=== PATIENT | female | born 1990 | race Two or more races ===

== ENCOUNTER 2020-02-12 02:12 | Inpatient (IN) | payer OTHER ==
[~2020-02-12] VITALS: Ht 160 cm; Wt 73.5 kg
[2020-02-12] MEDS ORDERED: PRENATAL CAPLE1 EAC1 PO (02:33)
== END 2020-02-14 13:21 | disposition home or self-care (01) | DRG 807 ==
LOC: LDR 02:12 → OB/GYN 10:31
PROVIDERS: ADMIT Obstetrics & Gynecology
PROC: 10E0XZZ Delivery of Products of Conception, External Approach (ICD-10-PCS; principal; 2020-02-12)
PROC: 0KQM0ZZ Repair Perineum Muscle, Open Approach (ICD-10-PCS; 2020-02-12)
PROC: 4A1HXCZ Monitoring of Products of Conception, Cardiac Rate, External Approach (ICD-10-PCS; 2020-02-12)
PROC: 4A033R1 Measurement of Arterial Saturation, Peripheral, Percutaneous Approach (ICD-10-PCS; 2020-02-12)
DX: O70.0 First degree perineal laceration during delivery (principal); Z37.0 Single live birth; Z3A.39 39 weeks gestation of pregnancy; Z22.330 Carrier of Group B streptococcus

== ENCOUNTER 2022-03-24 05:00 | Day surgery (SDC) | payer OTHER ==
[~2022-03-24] VITALS: Ht 160 cm; Wt 61.2 kg
[~2022-03-24 05:00] MED LIST: PRENATAL CAPLE1 EAC1 PO
== END 2022-03-24 15:15 | disposition home or self-care (01) ==
LOC: CIR.AMB 05:00
PROVIDERS: ATTEND Obstetrics & Gynecology
DX: N70.91 Salpingitis, unspecified (principal); Z20.822 Contact with and (suspected) exposure to COVID-19

== ENCOUNTER 2023-02-25 19:07 | Emergency (ER) | payer OTHER ==
[~2023-02-25] VITALS: Ht 160 cm; Wt 61.7 kg
== END 2023-02-25 20:54 | disposition home or self-care (01) ==
LOC: ER 19:07
DX: M54.2 Cervicalgia (principal); R51.9 Headache, unspecified